=== PATIENT | male | born 1955 | race Caucasian/White ===

== ENCOUNTER → 2020-07-03 | Day surgery (SDC) | payer MEDICARE ==
[~2020-07-03] MED LIST: ASPIRIN EC81 MG PO; COREG 6.25MG6.25 MG PO; COZAAR100 MG PO; GLUCOPHAGE1000 MG PO; LIPITOR80 MG PO
== END | disposition home or self-care (01) ==
LOC: FAS 07:29
DX: Z12.11 Encounter for screening for malignant neoplasm of colon (principal); I25.10 Atherosclerotic heart disease of native coronary artery without angina pectoris; I25.2 Old myocardial infarction; I10 Essential (primary) hypertension; E78.5 Hyperlipidemia, unspecified; E11.51 Type 2 diabetes mellitus with diabetic peripheral angiopathy without gangrene; Z86.010 Personal history of colon polyps; Z87.891 Personal history of nicotine dependence; Z95.5 Presence of coronary angioplasty implant and graft; Z88.0 Allergy status to penicillin; Z79.84 Long term (current) use of oral hypoglycemic drugs; Z79.82 Long term (current) use of aspirin; Z79.899 Other long term (current) drug therapy
CPT/HCPCS: J2704; J7120